=== PATIENT | male | born 2000 | race Native Hawaiian/Other Pacific Islander ===

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

== ENCOUNTER 2022-07-21 14:11 | Emergency (ER) | payer BC ==
[~2022-07-21] VITALS: Ht 180.3 cm; Wt 90.7 kg
[2022-07-21 14:18] VITALS: TEMP 99.1
[2022-07-21 14:54] LABS: PLATELET COUNT 208 K/uL (142-355)
[2022-07-21 15:06] LABS: POTASSIUM 2.7 mmol/L (3.6-5.2)
[2022-07-21 18:54] VITALS: BP 121/68
== END 2022-07-21 18:56 | disposition short-term general hospital (02) ==
LOC: ED 14:11
PROVIDERS: Emergency Medicine
DX: R19.8 Other specified symptoms and signs involving the digestive system and abdomen (principal); Z11.52 Encounter for screening for COVID-19
CPT/HCPCS: 36415; 80053; 80307; 81002; 82272; 83690; 85027; 87635; 93005; 96361; 96374; 96375; 99284; J2060; J2270; J2405; J3490; Q9963; U0003

== ENCOUNTER 2022-09-02 07:34 | Day surgery (SDC) | payer BC ==
[~2022-09-02] VITALS: Ht 154.9 cm; Wt 85.7 kg
== END 2022-09-02 13:20 | disposition home or self-care (01) ==
LOC: OR 07:34
PROVIDERS: ATTEND Internal Medicine Gastroenterology
PROC: 0DB68ZX Excision of Stomach, Via Natural or Artificial Opening Endoscopic, Diagnostic (ICD-10-PCS; principal; 2022-09-02)
PROC: 0DB88ZX Excision of Small Intestine, Via Natural or Artificial Opening Endoscopic, Diagnostic (ICD-10-PCS; 2022-09-02)
DX: K21.00 Gastro-esophageal reflux disease with esophagitis, without bleeding (principal); K44.9 Diaphragmatic hernia without obstruction or gangrene; K29.00 Acute gastritis without bleeding; B96.81 Helicobacter pylori [H. pylori] as the cause of diseases classified elsewhere; R11.2 Nausea with vomiting, unspecified; R93.5 Abnormal findings on diagnostic imaging of other abdominal regions, including retroperitoneum
CPT/HCPCS: J2001; J2704; J7120

== ENCOUNTER 2022-09-13 12:41 | Observation (INO) | payer BC ==
[~2022-09-13] VITALS: Ht 182.9 cm; Wt 88.6 kg
[2022-09-13 12:44] VITALS: BP 126/85; TEMP 98.1
[2022-09-13 13:14] LABS: PLATELET COUNT 210 K/uL (142-355)
[2022-09-13 18:03] VITALS: BP 124/80; TEMP 97.6; Ht 182.9 cm; Wt 88.6 kg
== END 2022-09-13 23:29 | disposition home or self-care (01) ==
LOC: ED 12:41 → MED/SURG 16:38
PROVIDERS: ADMIT Family Medicine; ATTEND Internal Medicine
DX: R11.2 Nausea with vomiting, unspecified (principal); K21.9 Gastro-esophageal reflux disease without esophagitis; E86.0 Dehydration
CPT/HCPCS: 36415; 80053; 80307; 81002; 82150; 82550; 83605; 83690; 85027; 87502; 87635; 87651; 93005; 96361; 96365; 96375; 99221; 99284; G0378; J2270; J2405; J2550; J3490; U0003